=== PATIENT | female | born 1965 | race Hispanic/Latino ===

== ENCOUNTER → 2022-10-10 | Outpatient (CLI) | payer MEDICAID | END | disposition home or self-care (01) | LOC: RAH 11:06 | PROVIDERS: ATTEND Family Medicine | DX: Z12.31 Encounter for screening mammogram for malignant neoplasm of breast (principal) | CPT/HCPCS: 77067 ==

== ENCOUNTER 2023-04-03 06:57 | Day surgery (SDC) | payer MEDICAID ==
[2023-03-30 10:22] LABS: BASOPHILS % (AUTO) 0.7 % (0.0-5.0); EOSINOPHILS % (AUTO) 3.2 % (0.0-8.0); HEMATOCRIT 38.8 % (36-48); LYMPHOCYTES % (AUTO) 29.4 % (21.0-51.0); MEAN CORPUSCULAR HEMOGLOBIN 29.8 pg (27.0-33.0); MEAN CORPUSCULAR HGB CONC 32.7 g/dL (32.0-36.0); MEAN CORPUSCULAR VOLUME 91.1 fL (79-99); NEUTROPHILS % (AUTO) 58.3 % (40.0-77.0); PLATELET COUNT (AUTO) 326 K/uL (130-400); RED BLOOD CELL COUNT(AUTO) 4.26 MIL/uL (4.00-5.50); RED CELL DISTRIBUTION WIDTH 13.5 % (11.0-15.5); WHITE BLOOD COUNT (AUTO) 8.2 K/uL (4.8-10.8)
[2023-03-30 10:33] LABS: CREATININE 0.7 mg/dL (0.5-1.5); POTASSIUM 4.1 mmol/L (3.5-5.1)
[2023-03-30 10:43] VITALS: BP 129/75
[~2023-04-03] VITALS: Ht 154.9 cm; Wt 66.2 kg
[2023-04-03] VITALS (20 sets, daily range): BP systolic 119–156; BP diastolic 59–87
[~2023-04-03 06:57] MED LIST: 0.9%NACL 1000ML 1,000 ML IV SCH; ATOR-2 PO; CEFAZOLIN SODIUM 2 GM VIAL IVPB SCH; DULO60CA64 PO; FOLI1 PO; HYDR-3421 PO; LISI20TA24 PO; METF-444 PO; NITR0.4T50 SL; PANT40TA54 PO; PROG100C11 PO; TRAZ150 PO
[2023-04-03] MEDS ORDERED: INDOCYANINE GREEN 25 MG VIAL IJ ONE (07:03)
[2023-04-03] MEDS ORDERED: LIDOCAINE PF 100MG/5ML (2%) SYRINGE 5ML ONE (07:16)
[2023-04-03] MEDS ORDERED: PROPOFOL 10 MG/ML 20ML VIAL IV ONE (07:17)
[2023-04-03] MEDS ORDERED: FENTANYL CITRATE PF 50 MCG/1 ML 2ML VIAL ONE ×2 (07:17→08:56)
[2023-04-03] MEDS ORDERED: ROCURONIUM 10MG/1ML SYR 10 MG/ML ML ONE (07:17)
[2023-04-03] MEDS ORDERED: MIDAZOLAM HCL 1 MG/ML 2ML VIAL ONE (07:17)
[2023-04-03] MEDS ORDERED: LIDOCAINE 1%-EPI 1:100,000 20 ML VIAL IJ ONE ×2 (07:22→07:44)
[2023-04-03] MEDS ORDERED: BUPIVACAINE/PF 0.5% 30ML VIAL ONE (07:22)
[2023-04-03] MEDS ORDERED: BUPIVACAINE/PF 0.5% 10ML VIAL ONE (07:23)
[2023-04-03] MEDS ORDERED: ROPIVACAINE 0.5% 5MG/ML 30ML IJ ONE (07:43)
[2023-04-03] MEDS ORDERED: BUPIVACAINE/PF 0.5% 30ML VIAL INJ ONE (07:44)
[2023-04-03] MEDS ORDERED: CEFAZOLIN SODIUM 2 GM VIAL IVPB ONE (08:26)
[2023-04-03] MEDS ORDERED: EPHEDRINE SULFATE 50 MG/ML AMPULE ONE (08:49)
[2023-04-03] MEDS ORDERED: DEXAMETHASONE SOD PHOSPHATE 4 MG/ML 1ML VIAL ONE (08:50)
[2023-04-03] MEDS ORDERED: ONDANSETRON 4MG INJ ONE ×2 (08:50→10:12)
[2023-04-03] MEDS ORDERED: KETOROLAC 30MG VIAL (30MG/ML) ONE (09:07)
[2023-04-03] MEDS ORDERED: GLYCOPYRROLATE 1 MG/5 ML SYRINGE ONE (09:24)
[2023-04-03] MEDS ORDERED: NEOSTIGMINE 5MG/5ML SYR IV ONE (09:24)
[2023-04-03] MEDS ORDERED: HYDROMORPHONE 1 MG INJ ONE (10:04)
[2023-04-03] MEDS ORDERED: LABETALOL 20MG SYG IV ONE (10:07)
[2023-04-03] MEDS ORDERED: MEPERIDINE-PF 25 MG/ML SYG ONE (10:12)
[2023-04-03] MEDS ORDERED: HYDRALAZINE 20MG/ML VIAL ONE (10:21)
[2023-04-03] MEDS ORDERED: IBUP-1493 PO (10:42)
== END 2023-04-03 11:58 | disposition home or self-care (01) ==
LOC: DAH 06:57
PROVIDERS: ATTEND Surgery
DX: K80.10 Calculus of gallbladder with chronic cholecystitis without obstruction (principal); Z20.822 Contact with and (suspected) exposure to COVID-19; I10 Essential (primary) hypertension; J44.9 Chronic obstructive pulmonary disease, unspecified; G47.30 Sleep apnea, unspecified; E78.5 Hyperlipidemia, unspecified; F41.9 Anxiety disorder, unspecified; Z90.710 Acquired absence of both cervix and uterus; Z98.891 History of uterine scar from previous surgery; Z98.890 Other specified postprocedural states; Z83.3 Family history of diabetes mellitus; Z87.891 Personal history of nicotine dependence
CPT/HCPCS: 47562; S2900; 36415; 80048; 82948; 85025; 87426; 93005; J0360; J1100; J1170; J1885; J2001; J2175; J2250; J2405; J2704; J2710; J2795; J3010; J3490; J7030